=== PATIENT | male | born 1955 | race Caucasian/White ===

== ENCOUNTER 2020-08-19 12:18 | Observation (INO) | payer OTHER ==
[~2020-08-19] VITALS: Ht 182.9 cm; Wt 68.5 kg
[~2020-08-19 12:18] MED LIST: IBUPROFEN 800800 MG PO; NOHOMEMEDICATIONS
[2020-08-19 12:20] VITALS: BP 184/113
[2020-08-19 12:42] LABS: ABSOLUTE BASOPHILS 0.1 thou/uL (0.0-0.2); ABSOLUTE EOSINOPHILS 0.1 thou/uL (0.0-0.7); ABSOLUTE LYMPHOCYTES 1.6 thou/uL (0.8-5.3); ABSOLUTE MONOCYTES 0.8 thou/uL (0.0-1.2); ABSOLUTE NEUTROPHILS 7.7 thou/uL (1.6-8.1); BASOPHILS 0.5 %; EOSINOPHILS 0.6 %; HEMATOCRIT 43.1 % (42.0-52.0); HEMOGLOBIN 14.9 gm/dL (14.0-18.0); LYMPHOCYTES 15.4 %; MCHC 34.7 g/dL (28.0-37.0); MCV 98.2 fL (80.0-100.0); MONOCYTES 7.4 %; MPV 6.9 fl. (7.2-11.1); NUCLEATED RBCS 0 /100WBC; PLATELET COUNT* 265 thou/uL (150-400); POLYS 76.1 %; RBC 4.39 mil/uL (4.50-6.00); RDW-CV 14.3 % (10.5-14.5); WBC 10.1 thou/uL (4.0-11.0)
[2020-08-19 12:49] LABS: CREATININE 0.9 mg/dL (0.6-1.3); POTASSIUM 4.3 mmol/L (3.5-5.1)
[2020-08-19 13:04] LABS: ALBUMIN 3.5 g/dL (3.4-5.0); TOTAL BILIRUBIN 0.5 mg/dL (<0.1-1.0); TOTAL PROTEIN 6.7 g/dL (6.4-8.2)
[2020-08-19 15:25] VITALS: BP 164/95
[2020-08-19 16:00] VITALS: BP 168/95
--- NOTE | 2020-08-19 17:01 | EKG ---
[place] [address] ELECTROCARDIOGRAM REPORT Name: GRAHAM MENESESH Ross Room: [address] M.R.#: [id number] Admission: 08/19/20 Attend Phys: Suresh Lam Discharge: Date of : 55 Date of Service: 08/19/20 1222 Report #: [id number] THIS REPORT FOR: //name// [facility] ED Test Date: 2020-08-19 Test Time: 12:22:08 Pat Name: JULIANE MENESES Department: Room: [facility] Gender: M Director Of State: GRISEL : 1955 Requested By: Robert Moya Order Number: [id number] MD: Durga Cerna Measurements Intervals [place] Rate: 71 P: 20 [place]: 122 QRS: 45 QRSD: 110 T: 34 QT: 374 QTc: 407 Interpretive Statements Sinus rhythm Baseline wander in lead(s) II,aVF No previous ECG available for comparison Electronically Signed On 08-19-2020 17:01:14 CDT by Durga Cerna [email or web address] <ELECTRONICALLY SIGNED> By: Durga Cerna MD, FAC 08/19/20 1701 1222 1222 Durga Cerna MD, [facility] /EPI
[2020-08-19 19:50] VITALS: BP 124/81
[2020-08-20] VITALS: BP 132/66
[2020-08-20 04:00] VITALS: BP 136/84
[2020-08-20 05:29] LABS: CHOLESTEROL 209 mg/dL (<200); HDL CHOLESTEROL 83 mg/dL (>40); LDL CHOLESTEROL 110 mg/dL (<100); SERUM ASSESSMENT CLEAR; TC:HDL 2.5 Ratio (Not establshd); TRIGLYCERIDE 83 mg/dL (<150); VLDL 17 mg/dL (<40)
[2020-08-20 08:00] VITALS: BP 140/82
--- NOTE | 2020-08-20 08:20 | CON ---
[address] [address] CONSULTATION Name: JULIANE MENESES Room: [address] Charleen Lima#: [id number] Admission: 08/19/20 Attend Phys: Wanda Mckenzie Discharge: Date of : 55 Report #: [id number] THIS REPORT FOR: //name// cc: ASHER Bellamy family physician/PCP ASHER - Mia family physician/PCP ~ THIS REPORT FOR: //name// CC: [facility] physician[facility]PCP Tamara Lozada DATE OF SERVICE: 08/19/2020 INDICATION: Chest pain. HISTORY OF PRESENT ILLNESS: The patient is a very pleasant 65-year-old gentleman with no significant prior medical history with the exception of some osteoarthritis of his knees. 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 He smokes daily. He drinks alcohol on occasion. He denies any history of hypertension, dyslipidemia, diabetes or family history of coronary artery disease. The patient awoke this morning and had a "tightness" across his chest. He decided to proceed to work despite this. Forty-five minutes into work the tightness had not gone away and he developed some feeling of dizziness and diaphoresis. The patient went home and thought he would rest. He then presented to the primary care physician's office for triage. He was noted to be significantly hypertensive and sent to the Emergency Room. In the Emergency Room, his EKG appears stable. There is sinus rhythm without acute ST or T-wave abnormality. His initial 2 sets of troponin are unremarkable. Chest x-ray showed no acute abnormality. The patient has had some intermittent chest discomfort described as a tightness or band intermittently since arrival. He appears relatively comfortable at this time. Historically, he has not taken medications or presented with significant medical issues with the exception of some osteoarthritis of the knees. ALLERGIES: None documented. MEDICATIONS: None. PAST MEDICAL HISTORY: Previous left knee surgery. FAMILY HISTORY: Noncontributory. SOCIAL HISTORY: The patient smokes. He drinks alcohol occasionally. REVIEW OF SYSTEMS: A 14-point review of systems as per HPI, [place] [address] CONSULTATION Name: GIDEONJUILANE Room: [address]#: [id number] Admission: 08/19/20 Attend Phys: Wanda Mckenzie Discharge: Date of : 55 Report #: [id number] PHYSICAL EXAMINATION: VITAL SIGNS: Stable. Blood pressure 164/95, pulse 73 and regular. GENERAL: This is a pleasant gentleman who does not appear to be in distress. HEENT: Head is normocephalic, atraumatic. Extraocular muscles intact. Mucous membranes are moist. NECK: Shows no jugular venous distention. I do not appreciate carotid bruit. CHEST: Reveals clear lung maharaj without wheezes or rales. CARDIOVASCULAR: Reveals a regular rhythm without gallop or murmur. ABDOMEN: Reveals normal bowel sounds. The abdomen is soft, nontender. EXTREMITIES: Shows no edema. SKIN: Warm and dry. LABORATORY DATA: A 12-lead EKG shows sinus rhythm without acute ST or T-wave abnormality. Labs are reviewed. Troponins are unremarkable. NT-proBNP is within normal limits. Chest x-ray shows no acute cardiopulmonary process. IMPRESSION AND RECOMMENDATIONS: 1. Chest pain. The patient with a few risk factors for coronary artery disease including tobacco use. Possible family history of coronary artery disease, although was not specific. He presents with hypertension. I would proceed with echocardiogram and stress testing. Further coronary intervention pending the results of those studies. 2. Hypertension. Blood pressure moderately elevated at this time. At this time, I would start amlodipine 5 mg and follow. 3. Lipid status unknown. We will check fasting lipid profile. 4. Tobacco use. Smoking cessation discussed at this time. <ELECTRONICALLY SIGNED> By: Durga Cerna MD, FACC 08/20/20 0820 1738 1809Durga Cerna MD, FACC /nt
[2020-08-20 09:13] LABS: CALCIUM 8.9 mg/dL (8.5-10.1); CREATININE 0.8 mg/dL (0.6-1.3); POTASSIUM 4.2 mmol/L (3.5-5.1)
[2020-08-20] MEDS ORDERED: NORVASC5 MG PO (09:42)
--- NOTE | 2020-08-20 12:59 | 2DMMODE ---
[place] [address] 2 D/M-MODE ECHOCARDIOGRAM Name: JULIANE MENESES Ross Room: [address] Charleen Lima#: [id number] Admission: 08/19/20 Attend Phys: Suresh Lam Discharge: Date of : 55 Date of Service: 08/20/20 1259 Report #: [id number] THIS REPORT FOR: cc: FAM - No family physician/PCP FAM - No family physician/PCP Durga Cerna MD [facility] ~ APPROVED REPORT Study performed: 08/20/2020 10:57:59 EXAM: Comprehensive 2D, Doppler, and color-flow Echocardiogram Patient Location: Bedside BSA: 1.89 HR: 72 bpm BP: 136/84 mmHg Other Information Study Quality: Adequate Indications Chest Pain 2D Dimensions IVSd: 12.98 (7-11mm) LVOT Diam: 20.79 (18-24mm) LVDd: 50.34 mm PWd: 11.23 (7-11mm) Ascending Ao: 29.20 (22-36mm) LVDs: 34.45 (25-40mm) Aortic Root: 31.57 mm Volumes Left Atrial Volume (Systole) LA ESV Index: 23.80 mL/m2 Aortic Valve AoV Peak Cezar.: 0.92 m/s AO Peak Gr.: 3.41 mmHg LVOT Max P.76 mmHg AO Mean Gr.: 2.29 mmHg LVOT Mean P.52 mmHg LVOT Max V: 0.83 m/s AO V2 VTI: 16.88 cm LVOT Mean V: 0.57 m/s JROGE (VTI): 4.26 cm2 LVOT V1 VTI: 21.16 cm Mitral Valve E/A Ratio: 0.83 [place] [address] 2 D/M-MODE ECHOCARDIOGRAM Name: JULIANE MENESES Room: [address] Charleen Lima#: [id number] Admission: 08/19/20 Attend Phys: Suresh Lam Discharge: Date of : 55 Date of Service: 08/20/20 1259 Report #: [id number] MV Decel. Time: 236.20 ms MV E Max Cezar.: 0.53 m/s MV PHT: 68.50 ms MVA (PHT): 3.21 cm2 TDI E/Lateral E': 5.89 E/Medial E': 6.63 Medial E' Cezar.: 0.08 m/s Lateral E' Cezar.: 0.09 m/s Pulmonary Valve PV Peak Cezar.: 0.72 m/s PV Peak Gr.: 2.09 mmHg Left Ventricle The left ventricle is normal size. There is normal LV segmental wall motion. There is normal left ventricular wall thickness. Left ventricular systolic function is normal. LVEF is 55-60%. Grade I - abnormal relaxation pattern. Right Ventricle The right ventricle is normal size. The right ventricular systolic function is normal. Atria The left atrium size is normal. The right atrium size is normal. Aortic Valve The aortic valve is normal in structure. No aortic regurgitation is present. There is no aortic valvular stenosis. Mitral Valve The mitral valve is normal in structure. There is no mitral valve regurgitation noted. No evidence of mitral valve stenosis. Tricuspid Valve The tricuspid valve is normal in structure. There is no tricuspid valve regurgitation noted. Pulmonic Valve The pulmonary valve is normal in structure. There is no pulmonic valvular regurgitation. Great Vessels The aortic root is normal in size. IVC is normal in size and collapses >50% [place] [address] 2 D/M-MODE ECHOCARDIOGRAM Name: JULIANE MENESES Room: [address] Janie#: [id number] Admission: 08/19/20 Attend Phys: Suresh Lam Discharge: Date of : 55 Date of Service: 08/20/20 1259 Report #: [id number] Pericardium There is no pericardial effusion. <Conclusion> The left ventricle is normal size. There is normal left ventricular wall thickness. Left ventricular systolic function is normal. LVEF is 55-60%. Grade I - abnormal relaxation pattern. IVC is normal in size and collapses >50% with inspiration. <ELECTRONICALLY SIGNED> By: Durga Cerna MD, FACC 08/20/20 1259 1259 1259 Durga Cerna MD, FACC /INF
[2020-08-20 13:13] VITALS: BP 140/82
--- NOTE | 2020-08-24 16:29 | CARDNUC ---
[place] [address] CARDIAC NUCLEAR IMAGING REPORT Name: GIDEONJULIANE J Room: [address] Janie#: [id number] Admission: 08/19/20 Attend Phys: Suresh Lam Discharge: 08/20/20 Date of : 55 Date of Service: 08/24/20 1628 Report #: [id number] THIS REPORT FOR: cc: FAM - No family physician/PCP FAM - No family physician/PCP Durga Cerna MD [facility] ~ APPROVED REPORT Imaging Protocol: Other Study performed: 08/19/2020 17:39:00 Indication: Chest pain Patient Location: Observation Room #: [facility] Stress Nurse: NONA Conway Tech:JOSEF Ocasio BMI: 0 Resting Data Rest SPECT myocardial perfusion imaging was performed in supine position 30 minutes following the intravenous injection of 9.9 mCi of Tc-99m Sestamibi. Time of rest injection: 11:00 Date: 08/20/2020 The images were gated to evaluate regional wall motion and calculate left ventricular ejection fraction. Administration Route: IV Stress Test Details BP ECG Perfusion Resting images show uniform uptake of the radioisotope throughout the myocardium. Wall Motion Post acquisition gating of the rest images shows a septal wall motion abnormality of uncertain significance. There is mild to moderate left ventricular systolic [place] [address] CARDIAC NUCLEAR IMAGING REPORT Name: GRAHAM MENESESCarlos Hawkins Room: [address] Charleen MOlga#: [id number] Admission: 08/19/20 Attend Phys: Suresh Lam Discharge: 08/20/20 Date of : 55 Date of Service: 08/24/201627 Report #: [id number] Resting images showed no defect to suggest perfusion abnormality. Stress images obtained at a later date and dictated separately. <ELECTRONICALLY SIGNED> By: Durga Cerna MD, FACC 08/24/201627 27 27 Durga Cerna MD, FACC /INF
== END 2020-08-20 14:06 | disposition home or self-care (01) ==
LOC: M.ERS 12:18 → M.TBA-ER 13:31 → M.2W 15:34
PROVIDERS: Emergency Medicine Emergency Medical Services; Internal Medicine Cardiovascular Disease; ADMIT Internal Medicine; ATTEND Internal Medicine
DX: I16.9 Hypertensive crisis, unspecified (principal); R07.89 Other chest pain; F41.9 Anxiety disorder, unspecified; F17.210 Nicotine dependence, cigarettes, uncomplicated; I10 Essential (primary) hypertension; Z79.82 Long term (current) use of aspirin; Z79.899 Other long term (current) drug therapy; Z20.828 Contact with and (suspected) exposure to other viral communicable diseases

== ENCOUNTER → 2020-08-23 | Outpatient (CLI) | payer OTHER ==
[~2020-08-23] MED LIST changes: +NORVASC5 MG PO
--- NOTE | 2020-08-24 16:31 | CARDNUC ---
[place] [address] CARDIAC NUCLEAR IMAGING REPORT Name: JULIANE MENESES Ross Room: [facility]#: [id number] Admission: 08/23/20 Attend Phys: Durga Cerna, Discharge: Date of : 55 Date of Service: 08/24/20 1631 Report #: [id number] THIS REPORT FOR: cc: FAM - No family physician/PCP FAM - No family physician/PCP Durga Cerna MD [facility] ~ APPROVED REPORT Imaging Protocol: Other Study performed: 08/23/2020 11:15:00 Indication: Chest Pain, Hypertensive crisis. Patient Location: Out-Patient Stress Tech: Maria Elena Rocha Stress Nurse: Maribell Coy RN Ht: 6 ft 0 in Wt: 150 lbs BSA: 1.88 m2 BMI: 20.34 Medical History Medical History: Angina, hypertensive crisis, dizziness, diaphoresis, hand tingling, current smoker, s/p knee surgery, unsteady gait. Medications: Amlodipine, ASA 325 mg. Allergies: No known drug allergies Cardiac Risk Factors: Age, Current Smoker, HTN. Previous Cardiac Procedures: None Pretest Chest Pain Characteristics: No chest pain Exercise History: Indeterminate Physical Disabilities: left knee pain/stiffness, limp, s/p knee surgery, unsteady gait. Meds Held (24 hrs): None Pharmacologic Stress Pharmacologic stress test was performed by injecting Regadenoson 0.4 mg IV push over 10-15 seconds immediately followed by the intravenous injection of 32.3 mCi of Tc-99m Sestamibi. Time of stress injection: 1020 Date: 08/23/2020 Administration Route: IV Administration Site: Right Wrist Heart Rate at time of stress injection: 121 bpm. Gated Stress SPECT was performed 45 minutes after stress injection. The images were gated to evaluate regional wall [place] [address] CARDIAC NUCLEAR IMAGING REPORT Name: JULIANE MENESES Room: [facility]#: [id number] Admission: 08/23/20 Attend Phys: Durga Cerna, Discharge: Date of : 55 Date of Service: 08/24/20 1631 Report #: [id number] left ventricular ejection fraction. Prone imaging was performed. Stress Test Details Stress Test: Pharmacologic stress was paired with low level exercise. Reason for pharmacologic stress test: left knee pain/stiffness, limp, s/p knee surgery, unsteady gait.. HR Max Heart Rate (APMHR): 155 bpm Resting HR: 86 bpm Target HR (85% APMHR): 131 bpm Max HR Achieved: 154 bpm % of APMHR: 99 Recovery HR: 108 bpm BP Resting BP: 151/94 mmHg Max BP: 190/89 mmHg Recovery BP: 151/100 mmHg ECG Resting ECG: Sinus Rhythm Stress ECG: Sinus Tachycardia ST Change: None Arrhythmia: None Recovery ECG: Sinus Rhythm Recovery ST Change: None Recovery Arrhythmia: None Clinical Reason for Termination: Completed protocol Stress Symptoms: Dyspnea, Abdominal discomfort, Dizziness. Exercise duration: 5 min 01 sec Exercise capacity: 3.59 METs The patient tolerated walking Lexiscan protocol without significant cardiac symptoms. Nurse Comments A 65 year old male presented post hospital discharge for an outpatient Nuclear Stress Test r/t chest pain, HTN crisis. Staff was unable to complete patients stress test as an inpatient due to nitro paste on patient upon arrival to stress room. On this day, Efrain Protocol attempted but not well tolerated due to knee problems/awkward gait. Consequently, test was changed to a walking lexiscan. Recovery unremarkable. Patient was escorted by staff to Nuclear Medicine for imaging. Patient was stable and stated he [place] [address] CARDIAC NUCLEAR IMAGING REPORT Name: GRAHAM MENESESCarlos Hawkins Room: [facility]#: [id number] Admission: 08/23/20 Attend Phys: Durga Cerna, Discharge: Date of : 55 Date of Service: 08/24/20 1631 Report #: [id number] Stress ECG Conclusion Baseline twelve-lead EKG shows sinus rhythm without significant ST segment or T wave abnormality. EKGs obtained during and post walking Lexiscan protocol shows sinus rhythm and sinus tachycardia at with no significant ST segment changes when compared to baseline. There were no stress-induced arrhythmias. Study Quality Study: Good Artifact: No artifact Study Data Post stress, the left ventricular ejection was 35%.. Perfusion Post stress perfusion images show no defect to suggest infarct or ischemia. Wall Motion Gated study showed global hypokinesis. Left ventricular systolic function is at least moderately decreased. Nuclear Conclusion ECG Findings: negative for ischemia Clinical Findings: negative for ischemia Nuclear Findings: negative for ischemia Exercise Capacity: not assessed Left Ventricular Function: abnormal Perfusion studies post stress show no defect to suggest infarct or ischemia. When compared to previously acquired resting images there were no fixed or reversible defects either. Global LV systolic function is moderate to severely decreased. Findings appear to be consistent with a nonischemic cardiomyopathy. This is not a high risk study. <Conclusion> Baseline twelve-lead EKG shows sinus rhythm without significant ST segment or T wave abnormality. EKGs obtained during and post walking Lexiscan protocol shows sinus rhythm and sinus tachycardia [place] [address] CARDIAC NUCLEAR IMAGING REPORT Name: JULIANE MENESES [facility] [id number] Admission: 08/23/20 Attend Phys: Durga Cerna, Discharge: Date of : 55 Date of Service: 08/24/20 1631 Report #: [id number] segment changes when compared to baseline. There were no stress-induced arrhythmias. <ELECTRONICALLY SIGNED> By: Durga Cerna MD, FACC 08/24/20 163 30 30 Durga Cerna MD, FACC /INF
== END ==
LOC: M.CRD 10:00
PROVIDERS: ATTEND Internal Medicine Cardiovascular Disease
DX: R07.9 Chest pain, unspecified (principal); I16.9 Hypertensive crisis, unspecified; I20.9 Angina pectoris, unspecified; R06.00 Dyspnea, unspecified

== ENCOUNTER 2021-11-28 11:49 | Emergency (ER) | payer OTHER, MEDICARE ==
[~2021-11-28] VITALS: Ht 185.4 cm; Wt 72.6 kg
--- NOTE | 2021-11-28 13:34 | EKG ---
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: : 1955 Requested By: Dylan Vora Order Number: [id number] MD: Elliott Marion Measurements Intervals [place] Rate: 98 P: 85 [place]: 134 QRS: 89 QRSD: 106 T: -29 QT: 323 QTc: 413 Interpretive Statements Sinus tachycardia Ventricular premature complex Right atrial enlargement Inferior infarct, age indeterminate Lateral leads are also involved Baseline wander in lead(s) V6 Compared to ECG 08/19/2020 12:22:08 Ventricular premature complex(es) now present Atrial abnormality now present Myocardial infarct finding now present Sinus rhythm no longer present Electronically Signed On 11-28-2021 13:34:42 QUILLER RUNNER by Elliott Marion [email or web address] <ELECTRONICALLY SIGNED> By: Elliott Marion MD, [facility] 11/28/21 1334 1216 1216 Elliott Marion MD, [facility] /EPI
[2021-11-28 13:50] LABS: CALCIUM 9.2 mg/dL (8.5-10.1); CREATININE 0.9 mg/dL (0.6-1.3); POTASSIUM 4.1 mmol/L (3.5-5.1)
[2021-11-28 13:51] LABS: ABSOLUTE EOSINOPHILS 0.1 thou/uL (0.0-0.7); ABSOLUTE LYMPHOCYTES 1.8 thou/uL (0.8-5.3); ABSOLUTE MONOCYTES 0.7 thou/uL (0.0-1.2); ABSOLUTE NEUTROPHILS 8.1 thou/uL (1.6-8.1); BASOPHILS 0.4 %; EOSINOPHILS 1.2 %; HEMATOCRIT 46.7 % (42.0-52.0); HEMOGLOBIN 15.7 gm/dL (14.0-18.0); LYMPHOCYTES 16.9 %; MCH 32.7 pg (26.0-34.0); MCHC 33.5 g/dL (28.0-37.0); MCV 97.5 fL (80.0-100.0); MONOCYTES 6.4 %; MPV 7.1 fl. (7.2-11.1); NUCLEATED RBCS 0 /100WBC; PLATELET COUNT* 325 thou/uL (150-400); POLYS 75.1 %; RBC 4.79 mil/uL (4.50-6.00); RDW-CV 14.3 % (10.5-14.5); WBC 10.8 thou/uL (4.0-11.0)
[2021-11-28 13:55] LABS: ALBUMIN 3.7 g/dL (3.4-5.0); TOTAL BILIRUBIN 0.5 mg/dL (<0.1-1.0); TOTAL PROTEIN 7.2 g/dL (6.4-8.2)
[2021-11-28 14:11] LABS: URINE BILIRUBIN NEGATIVE (Negative); URINE BLOOD NEGATIVE (Negative); URINE CLARITY CLEAR; URINE COLOR YELLOW; URINE GLUCOSE-RANDOM NEGATIVE (Negative); URINE KETONES NEGATIVE (Negative); URINE LEUKOCYTES NEGATIVE (Negative); URINE NITRITE NEGATIVE (Negative); URINE PROTEIN NEGATIVE (Negative); URINE SPECIFIC GRAVITY 1.025 (1.005-1.030); URINE UROBILINOGEN 0.2 E.U./dl (0.2-1.0)
[2021-11-28] MEDS ORDERED: FLEXERIL PO (14:49)
[2021-11-28] MEDS ORDERED: HYDROCODON-ACE1 EAC7 PO (14:49)
[2021-11-28 15:04] VITALS: BP 135/83
--- NOTE | 2021-11-30 11:00 | EKG ---
[place] [address] ELECTROCARDIOGRAM REPORT Name: JULIANE MENESES Room: [facility]#: [id number] Admission: 11/28/21 Attend Phys: Discharge: 11/28/21 Date of : 55 Date of Service: 11/28/21 1320 Report #: [id number] THIS REPORT FOR: //name// [facility] ED Test Date: 2021-11-28 Test Time: 13:20:43 Pat Name: JULIANE MENESES Department: Room: Gender: Rn Care Transition: : 1955 Requested By: Dylan Vora Order Number: [id number] MD: Elliott Mairon Measurements Intervals [place] Rate: 100 P: 77 [place]: 137 QRS: 62 QRSD: 107 T: 40 QT: 346 QTc: 447 Interpretive Statements Sinus tachycardia Right atrial enlargement Compared to ECG 11/28/2021 12:16:50 Ventricular premature complex(es) no longer present Electronically Signed On 11-30-2021 11:00:24 LAPPER by Elliott Marion [email or web address] <ELECTRONICALLY SIGNED> By: Elliott Marion MD, FAC 11/30/21 1100 1320 1320 Elliott Marion MD, [facility] /EPI
== END 2021-11-28 15:06 | disposition home or self-care (01) ==
LOC: M.ERS 11:49
PROVIDERS: Family Medicine
DX: R10.12 Left upper quadrant pain (principal); I10 Essential (primary) hypertension; F17.210 Nicotine dependence, cigarettes, uncomplicated; Z96.652 Presence of left artificial knee joint; Z79.899 Other long term (current) drug therapy

== ENCOUNTER 2022-01-03 12:50 | Emergency (ER) | payer OTHER, MEDICARE ==
[~2022-01-03] VITALS: Ht 182.9 cm; Wt 71.7 kg
[~2022-01-03 12:50] MED LIST changes: +FLEXERIL PO; +HYDROCODON-ACE1 EAC7 PO
[2022-01-03 13:30] LABS: ABSOLUTE EOSINOPHILS 0.2 thou/uL (0.0-0.7); ABSOLUTE LYMPHOCYTES 1.9 thou/uL (0.8-5.3); ABSOLUTE MONOCYTES 0.6 thou/uL (0.0-1.2); ABSOLUTE NEUTROPHILS 4.9 thou/uL (1.6-8.1); BASOPHILS 0.5 %; EOSINOPHILS 2.6 %; HEMATOCRIT 43.2 % (42.0-52.0); HEMOGLOBIN 14.4 gm/dL (14.0-18.0); LYMPHOCYTES 24.7 %; MCH 32.7 pg (26.0-34.0); MCHC 33.3 g/dL (28.0-37.0); MCV 98.1 fL (80.0-100.0); MONOCYTES 7.7 %; MPV 7.1 fl. (7.2-11.1); NUCLEATED RBCS 0 /100WBC; PLATELET COUNT* 317 thou/uL (150-400); POLYS 64.5 %; RDW-CV 14.5 % (10.5-14.5); WBC 7.6 thou/uL (4.0-11.0)
[2022-01-03 13:36] LABS: CALCIUM 8.9 mg/dL (8.5-10.1); CREATININE 0.9 mg/dL (0.6-1.3); POTASSIUM 4.2 mmol/L (3.5-5.1)
[2022-01-03 13:45] LABS: ALBUMIN 3.7 g/dL (3.4-5.0); MAGNESIUM 2.2 mg/dL (1.8-2.4); TOTAL BILIRUBIN 0.4 mg/dL (<0.1-1.0)
--- NOTE | 2022-01-03 14:30 | EKG ---
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: : 1955 Requested By: Dylan Vora Order Number: [id number] MD: Mark Arvizu Measurements Intervals [place] Rate: 76 P: 84 [place]: 140 QRS: 82 QRSD: 111 T: -14 QT: 378 QTc: 426 Interpretive Statements Sinus rhythm Probable left ventricular hypertrophy Inferior infarct, age indeterminate must be considered Compared to ECG 11/28/2021 13:20:43 Inferior Q's are more prominent Sinus tachycardia no longer present Atrial abnormality no longer present Electronically Signed On 01-03-2022 14:29:59 RELAY ASSOCIATE by Mark Arvizu [email or web address] <ELECTRONICALLY SIGNED> By: Mark Arvizu MD, [facility] 01/03/22 1429 1303 1303 Mark Arvizu MD, [facility] /EPI
[2022-01-03] MEDS ORDERED: HYDROCODON-ACE1 EAC7 PO (15:41)
[2022-01-03 15:49] VITALS: BP 138/84
== END 2022-01-03 15:49 | disposition home or self-care (01) ==
LOC: M.ERS 12:50
PROVIDERS: Family Medicine
DX: R07.89 Other chest pain (principal); I10 Essential (primary) hypertension; F17.200 Nicotine dependence, unspecified, uncomplicated; Z96.652 Presence of left artificial knee joint